=== PATIENT | male | born 1935 | race Caucasian/White ===

== ENCOUNTER → 2017-03-24 | Outpatient (CLI) | payer OTHER, BC ==
[~2017-03-24] MED LIST: ALBUTEROL2.5 MG/0.5 INH; ALBUTEROL2.5 MG/31 INH; APAP500 PO; ASPIRIN EC81 M1 PO; ATIVAN0.5 MG PO; AZELASTINE137 MCG/0. NASAL; B12INJ PO; BISACODYL SUPP10 MG RECTAL; CIPRO500 MG PO; COLACE100 MG PO; COUGH CONT100 MG/5 M PO; ENOXAPARIN40 MG/0.1 SUBQ; IRON325 PO; K-DUR 20 MEQ T20 MEQ PO; LASIX 40 MG TAB40 M1 PO; LEVAQUIN 500 M500 M2 PO; LEVAQUIN 750 M750 MG PO; LOSARTAN POTASS50 MG PO; MILK OF MA2400 MG/10 PO; OXYCONTIN10 M1 PO; PAROXETINE HCL20 MG PO; PAXIL10 MG PO; PREDNISONE 10 M10 MG PO; PREDNISONE50 MG PO; ROXICODONE5 M2 PO; SPIRIVA INH; SYMBICORT160 MCG/4.; SYMBICORT160 MCG/4. PO; SYMBICORT80 MCG/4.1 INH; TOPROL XL50 MG PO; TRAZODONE HCL PO; VITAMIN D3400 UNIT PO; VITAMINC500 PO; ZOCOR40 MG PO; ZPAK PO
== END ==
LOC: RAD 16:36
DX: J44.9 Chronic obstructive pulmonary disease, unspecified (principal); J18.9 Pneumonia, unspecified organism

== ENCOUNTER → 2018-05-11 | Outpatient (CLI) | payer OTHER, BC | LOC: RAD 14:29 | DX: J44.9 Chronic obstructive pulmonary disease, unspecified (principal); J98.4 Other disorders of lung ==